=== PATIENT | female | born 1990 | race Caucasian/White ===

== ENCOUNTER 2016-08-01 05:51 | Inpatient (IN) | payer MEDICAID ==
--- NOTE | 2016-07-30 13:50 | HP ---
Lou Porter : 1990 HISTORY OF PRESENT ILLNESS: Lou Porter is a 25-year-old female last period 10/28/2015, estimated date of delivery 08/03/2016 intrauterine at 39 weeks and 5 days admitted for a repeat section. OB HISTORY: She is 2, para 1-0-0-1. She had a primary section in [facility] of a 6 pound female at 40 weeks. Patient does not recall why she had a or the date of of the baby being born and then the baby of "fever" at one month of age. IT ADMINISTRATOR HISTORY: Menarche 14 x30 x7 with irregular periods every 30 days. PAST MEDICAL HISTORY: Negative. PAST SURGICAL HISTORY: section x1. SOCIAL HISTORY: Nonsmoker, nondrinker. FAMILY HISTORY: Negative. REVIEW OF SYSTEMS: Noncontributory. PHYSICAL EXAMINATION: GENERAL: Healthy female in no acute distress. HEENT: Normal. NECK: Supple. Thyroid not palpable. BREAST: Soft, no masses noted, but there was a scar on her left breast from an old infection. LUNGS: Clear. HEART: Showed a double click S2 sound with no murmur. ABDOMEN: Gravid. There is a midline scar noted and on last exam she measured 38 cm with heart present. PELVIC: On last exam cervix was closed, uneffaced and vertex -4 station. IMPRESSION: 1. Intrauterine at term. 2. Previous section. PLAN: Repeat section. Risks, reasons, complications, living will, alternatives were discussed with patient including, but not limited to hemorrhage, infection, vaginal after section all discussed in laypersons terms and Hebrew and all questions were answered.. Her Group B Strep is negative. JOB: [id number]
[2016-08-01] MEDS ORDERED: IV START KIT ONE (05:55)
[2016-08-01] MEDS ORDERED: LACTATED RINGERS 1,000 ML ONE (05:55)
[2016-08-01] MEDS: LACTATED RINGERS 1,000 ML IV SCH ×2 (06:10→09:19)
[2016-08-01] MEDS ORDERED: CEFAZOLIN SODIUM 2 GRAM DUPLEX 2 G in Premix (D5W) 50 ml 1 EACH IV PRN (06:28)
[2016-08-01 06:34] VITALS: BMI 33.4
[2016-08-01 06:45] LABS: HEMATOCRIT 37.1 % (37.0-47.0); HEMOGLOBIN 11.8 gm/l (12.0-16.0); MEAN CELL VOLUME 82.8 fl (81.0-99.0); MEAN CORPUSCULAR HEMOGLOBIN 26.3 pg (27.0-31.0); MEAN CORPUSCULAR HGB CONC 31.8 g/dl (33.0-37.0); RED CELL DISTRIBUTION WIDTH 18.8 % (11.5-14.5)
[2016-08-01] MEDS ORDERED: ONDANSETRON 4 MG/2ML 2 ML VIAL ONE (08:52)
[2016-08-01] MEDS ORDERED: OXYTOCIN 10 UNITS/ML VIAL ONE ×3 (08:52→10:50)
[2016-08-01] MEDS ORDERED: SPINAL PROCEDURAL TRAY 1 EACH ONE (08:52)
[2016-08-01] MEDS ORDERED: MORPHINE SULFATE (DURAMORPH) 1 MG/ML 10ML AMP ONE (08:52)
[2016-08-01] MEDS ORDERED: CEFAZOLIN SODIUM 2 GRAM DUPLEX 50 ML IV ONE (09:12)
[2016-08-01] MEDS ORDERED: EPHEDRINE SULFATE UD SYR 25 MG 25 MG/5 ML SYRINGE IV ONE (10:28)
[2016-08-01] MEDS ORDERED: NALBUPHINE HCL 20 MG/ML AMP IV PRN (10:30)
[2016-08-01] MEDS ORDERED: PROMETHAZINE HCL 25 MG/ML VIAL IM PRN (10:30)
[2016-08-01] MEDS ORDERED: MORPHINE SULFATE 2 MG/ML SYRINGE IV PRN (10:30)
[2016-08-01] MEDS: KETOROLAC TROMETHAMINE 30 MG/ML 1 ML VIAL IV SCH ×3 (10:30→22:58)
[2016-08-01] MEDS ORDERED: MORPHINE SULFATE 10 MG/ML SYRINGE IV PRN (10:30)
[2016-08-01] MEDS ORDERED: HYDROMORPHONE HCL 1 MG/ML SYRINGE IV PRN (10:30)
[2016-08-01] MEDS ORDERED: DIPHENHYDRAMINE HCL 50 MG/1 ML VIAL IV PRN ×2 (10:30→11:17)
[2016-08-01] MEDS ORDERED: MORPHINE SULFATE 4 MG/ML SYRINGE IV PRN (10:30)
[2016-08-01] MEDS ORDERED: NALOXONE HCL 0.4 MG/ML VIAL IV PRN (10:30)
[2016-08-01] MEDS ORDERED: HYDROMORPHONE HCL 2 MG/ML SYRINGE IV PRN (10:30)
[2016-08-01] MEDS ORDERED: ONDANSETRON 4 MG/2ML 2 ML VIAL IV PRN (10:30)
[2016-08-01] MEDS ORDERED: EPHEDRINE SULFATE 50 MG/ML 1ML VIAL IV PRN (10:30)
[2016-08-01] MEDS ORDERED: DIPHENHYDRAMINE HCL 50 MG/1 ML VIAL ONE (11:01)
[2016-08-01] MEDS ORDERED: DIPHENHYDRAMINE HCL 25 MG CAPSULE PO PRN (11:17)
[2016-08-01] MEDS ORDERED: LANOLIN 50 APPLIC/7G TUBE TP PRN (11:17)
--- NOTE | 2016-08-01 11:27 | PCMBPN ---
Brief Post Op Note: Date of Procedure: 08/01/16 Start Time: Preoperative Diagnosis: 1. intrauterine at term, short stature, previous cesarian section Postoperative Diagnosis: 1. Same Procedure: repeat lower segment cesarian section Surgeon: Gary Akins Assist:ms vashti jasso Anesthesia: spinal, mr erickson Findings: term sized uterus, both ovaries and tubes normal, clear amniotic fluid , live baby girl, 8/9, weight 7lbs 14 oz, lot position, intact placenta Condition: stable Complications: none IV Fluids: mLs of LR Urine Output: mLs Estimated Blood Loss: 400 mLs Tourniquet Time: N/A Specimens: N/A Implants: Drains: N/A closure samuel patient tolerated procedure well and was returned to recovery room in stable condition with hernandez draining clear yellow urine.
[2016-08-01] MEDS ORDERED: METHYLERGONOVINE MALEATE 0.2 MG/ML 1ML AMP IM PRN (11:49)
--- NOTE | 2016-08-01 13:59 | OP ---
Lou Porter : 1990 NAME OF OPERATION: Repeat lower segment section. PREOPERATIVE DIAGNOSES: 1. Intrauterine at term. 2. Short stature. 3. Previous section. POSTOPERATIVE DIAGNOSES: 1. Intrauterine at term. 2. Short stature. 3. Previous section. BLOCKER AUTOMATIC: Ms. Lei. ANESTHESIA: Mr. Vegas, Spinal. DESCRIPTION OF OPERATION: Dictation begins with patient under spinal anesthesia. The abdomen had been prepared with Chloraprep and draped in the usual manner for a pfannenstiel incision. After a timeout was performed the skin was tested and found to be with complete anesthesia. A knife was used to make a pfannenstiel incision through the skin. The knife was then used to dissect down to the subcutaneous tissues to the rectus abdominis fascia which was nicked with the knife and carried laterally with the Chow scissors. All bleeding points were clamped with Bridget's and bovied. The superior portion of the fascia was grasped with Rachel clamps, the median raphe divided with Chow scissors, and a similar procedure was performed on the lower end of the incision. The muscle was split in the mid portion, the peritoneum identified, and picked up with one Bridget clamp, divided with a Metzenbaum scissors and then stretched laterally. Findings included a term sized uterus. Both ovaries and tubes appeared normal. A [place] retractor was inserted into the lower end of the incision, then the anterior visceroperitoneum was grasped with a tissue forceps with the Metzenbaum, and carried laterally with Chow scissors. The bladder flap was then bluntly dissected down and replaced underneath the [place] retractor. The knife was then used to make a lower uterine incision which was stretched laterally. A live baby girl was delivered from the LOT position, delivered uneventfully through the incision and she cried spontaneously. She had an of 8 and 9 at one and five minutes respectively and a weight of 7 pounds 14 ounces. With the baby out the cord was clamped twice with Bridget clamps, divided in between with bandage scissors and the baby was then given to the nurse for care. Cord blood was obtained. Placenta was delivered manually and intact. Additional membranes were removed with ring forceps and with the uterine cavity free of any placenta related tissue or membranes ring forceps were placed at the 3, 6, 9, and 12 o'clock positions of the uterus, and was closed in two layers with #1 Chromic continuous interlocking sutures, the second layer imbricating the first. With complete hemostasis on the uterine incision and sponge and instrument count reported as correct by the nurse, the rectus abdominis muscle was reapproximated with 3 individual sutures of 1 Chromic material and then the fascia was closed in right and left halves with 1 Vicryl material in a continuous manner interlocking the first stitch. Subcutaneous bleeding points were bovied prior to closure. The skin was closed with samuel. Estimated blood loss was 400 mL. Patient tolerated procedure well and was returned to recovery room in stable condition with a Curran draining clear yellow urine. FINAL DIAGNOSIS: As above. JOB: [id number]
[2016-08-01] MEDS: DOCUSATE SODIUM 100 MG CAPSULE PO SCH (23:32)
[2016-08-02 06:31] LABS: HEMATOCRIT 27.5 % (37.0-47.0); HEMOGLOBIN 8.8 gm/l (12.0-16.0)
[2016-08-02] MEDS: KETOROLAC TROMETHAMINE 30 MG/ML 1 ML VIAL IV SCH ×2 (06:39→13:26)
--- NOTE | 2016-08-02 09:29 | PDOC44 ---
- Subjective Day: 1 Doing well. No complaints. Reports Flatus, Reports Pain Tolerable, Reports , Reports Lochia Moderate, Reports Tolerating Clear Liquids, Reports Tolerating Regular Diet - Objective Temp Pulse Resp BP Pulse Ox 98.0 F 73 16 119/53 100 08/02/16 06:44 08/02/16 06:44 08/02/16 06:44 08/02/16 06:44 08/01/16 17:20 Lab Results 08/02/16 05:30 Hgb 8.8 L D Hct 27.5 L Current Medications Generic Name Dose Route Start Last Admin Trade Name Freq PRN Reason Stop Dose Admin Diphenhydramine HCl 25 - 50 mg 08/01/16 11:17 Benadryl PO Q6H PRN Itching (Mild/Moderate) Diphenhydramine HCl 25 - 50 mg 08/01/16 11:17 Benadryl IV Q6H PRN Itching (Severe) Diphenhydramine HCl 25 - 50 mg 08/01/16 10:30 Benadryl IV 08/02/16 10:30 Q4H PRN Itching Docusate Sodium 100 mg 08/01/16 21:00 08/01/16 23:32 Colace PO Not Given BID LEANN Emollient Ointment 1 applic 08/01/16 11:17 [id number] TP PRN PRN sore nipples Ephedrine Sulfate 5 - 10 mg 08/01/16 10:30 Ephedrine Sulfate IV 08/02/16 10:30 Q5M PRN Hydromorphone HCl 0.5 - 2 mg 08/01/16 10:30 Dilaudid IV 08/02/16 10:30 Q1H PRN Pain (Breakthrough) Hydromorphone HCl 0.5 - 2 mg 08/01/16 10:30 Dilaudid IV 08/02/16 10:30 Q1H PRN Pain Ibuprofen 800 mg 08/01/16 11:17 Motrin PO Q8H PRN Pain Ketorolac Tromethamine 30 mg 08/01/16 10:30 08/02/16 06:39 Toradol IV 08/02/16 10:30 30 mg Q6H LEANN Administration Methylergonovine Maleate 0.2 mg 08/01/16 11:49 08/01/16 11:58 Methergine IM 0.2 mg Q3H PRN Administration Bleeding Morphine Sulfate 1 - 5 mg 08/01/16 10:30 Morphine Sulfate IV 08/02/16 10:30 Q1H PRN Pain (Breakthrough) Morphine Sulfate 1 - 5 mg 08/01/16 10:30 Morphine Sulfate IV 08/02/16 10:30 Q1H PRN Pain (Breakthrough) Morphine Sulfate 1 - 5 mg 08/01/16 10:30 Morphine Sulfate IV 08/02/16 10:30 Q1H PRN Pain (Breakthrough) Multivi/Iron Carb/Fe Sulf/FA/Prenat 1 tab 08/02/16 09:00 Plus PO DAILY LEANN Nalbuphine HCl 1 - 5 mg 08/01/16 10:30 Nubain IV 08/02/16 10:30 Q4H PRN Itching Naloxone HCl 0.2 - 0.4 mg 08/01/16 10:30 Narcan IV 08/02/16 10:30 Q5M PRN Ondansetron HCl 4 mg 08/01/16 10:30 Zofran IV 08/02/16 10:30 Q6H PRN Nausea/Vomiting Oxycodone/Acetaminophen 1 - 2 tab 08/01/16 11:17 Percocet 5/325 PO Q4H PRN Pain (Moderate) Promethazine HCl 6.25 - 12.5 mg 08/01/16 10:30 Phenergan IM 08/02/16 10:30 Q4H PRN Nausea/Vomiting Sodium Chloride 10 ml 08/01/16 11:17 Normal Saline 10ml Flush IV PRN PRN IV Flush Sodium Chloride 10 ml 08/01/16 17:00 08/02/16 06:39 Normal Saline 10ml Flush IV 10 ml Q8HR LEANN Administration - Physical Exam General: Afebrile Psych/Mental Status: Mood/Affect Appropriate, Judgment/Insight Intact, Bonding Well Neurological: Grossly Intact, Alert, Oriented x 4 HEENT: Atraumatic, PERRLA, EOMI, Mucous membr. moist/pink Lungs: Clear to Auscultation Bilaterally, Normal Air Movement Cardiovascular: Regular Rate and Rhythm, Normal S1, Normal S2 Fundus: Firm, At Umbilicus Abdomen: Normal Bowel Sounds Lochia: Moderate Extremities: Full ROM Skin: Normal Color, Warm, Dry, Intact Wound FORM CARPENTER: Dressing in Place, Dressing Clean/Dry/Intact Disposition: Anticipate DC Home Tomorrow
[2016-08-02] MEDS: DOCUSATE SODIUM 100 MG CAPSULE PO SCH ×2 (09:43→21:17)
[2016-08-02] MEDS: PRENATAL VIT/FE FUMARATE/FA 1 TABLET PO SCH (09:43)
[2016-08-02] MEDS: IBUPROFEN 800 MG TABLET PO PRN ×2 (12:32→21:17)
[2016-08-02] MEDS: OXYCODONE/ACETAMINOPHEN 5/325 MG TABLET PO PRN (15:19)
[2016-08-03] MEDS: OXYCODONE/ACETAMINOPHEN 5/325 MG TABLET PO PRN ×3 (02:32→14:30)
[2016-08-03 08:36] VITALS: BP 107/52
--- NOTE | 2016-08-03 09:35 | PDOC39B ---
Hospital Course: ADMIT DATE: 08/01/16 DISCHARGE DATE: 08/03/16 ADMISSION DIAGNOSES: intrauterine at 39.5 weeks, previous c section, tolac declined PROCEDURES: repeat lower segment Cesarian section HISTORY OF PRESENT ILLNESS: 25 year old G2 T1 L0 at 39 weeks 5 days presenting for scheduled repeat Cesarian section HOSPITAL COURSE: The patient had an uneventful course with the exception of post operative anemia. By day of discharge the patient is ambulating, eating, voiding, and passing flatus without difficulty. Pain is controlled and lochia is appropriate. She is [] - Physical Exam Vital Signs: Temp Pulse Resp BP Pulse Ox 97.4 F 69 16 107/52 100 08/03/16 08:20 08/03/16 08:20 08/03/16 08:20 08/03/16 08:20 08/01/16 17:20 General: Afebrile, No Acute Distress Psych/Mental Status: Mood/Affect Appropriate, Judgment/Insight Intact, Bonding Well Lungs: Clear to Auscultation Bilaterally, Normal Air Movement Breast: Soft, Skin intact, Nipples Intact, No Tenderness, No Erythema, No Engorged Fundus: Firm, Midline, Below Umbilicus, Other (nontender) Abdomen: Normal Bowel Sounds, Other (flatus passed, no bowel movement yet), No Tenderness, No Distention Genitourinary: Other (voiding without difficulty) Lochia: Moderate Extremities: No Tenderness Wound: Dressing in Place, Dressing Clean/Dry/Intact, Well Approximated, [place] Intact, Other (nontender), No Drainage, No Erythema - Discharge Diagnosis (1) Anemia, Status: Acute - Discharge Plan Condition: Stable Disposition: Home Additional Instructions: nothing in vagina x 6 weeks, take prescribed medications as written, office visit 5 days for staple removal with dr turner Prescriptions: Ibuprofen [Motrin] 1 tab PO Q6H PRN #30 tablet PRN Reason: Pain FERROUS SULFATE (65 Fe) [IRON FERROUS SULFATE 325 MG TABLET (SHF)] 325 mg PO DAILY #30 tab Oxycodone HCl/Acetaminophen [PERCOCET 5/325 MG TABLET (SHF)] 1 - 2 tab PO Q4H PRN #14 tablet PRN Reason: Pain (Moderate)
[2016-08-03] MEDS: PRENATAL VIT/FE FUMARATE/FA 1 TABLET PO SCH (10:21)
[2016-08-03] MEDS: IBUPROFEN 800 MG TABLET PO PRN (10:21)
[2016-08-03] MEDS: DOCUSATE SODIUM 100 MG CAPSULE PO SCH (10:21)
== END 2016-08-03 15:28 | disposition home or self-care (01) | DRG 766 ==
LOC: FBC 05:51
PROVIDERS: ADMIT Obstetrics & Gynecology; ATTEND Obstetrics & Gynecology
PROC: 10D00Z1 Extraction of Products of Conception, Low, Open Approach (ICD-10-PCS; principal; 2016-08-01)
DX: O34.211 Maternal care for low transverse scar from previous cesarean delivery (principal); Z37.0 Single live birth; Z3A.39 39 weeks gestation of pregnancy